=== PATIENT | male | born 1990 | race Caucasian/White ===

== ENCOUNTER 2022-02-07 19:22 | Emergency (ER) | payer OTHER, SELFPAY ==
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
[2022-02-07 19:35] VITALS: BMI 29.0
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
[2022-02-07 19:41] VITALS: BP 144/67; PULSE 69; RESP 18; TEMP 36.1; O2SAT 96
[2022-02-07 19:51] LABS: MANUAL DIFF FLAG NO
[2022-02-07 19:52] LABS: Basophils Percent Auto 0.5 % (0-2); Eosinophils Absolute Auto 0.1 X10*3/uL (0.0-0.4); Eosinophils Percent Auto 1.7 % (0-4); Hematocrit 38.7 % (42.0-52.0); Hemoglobin 12.9 g/dl (14.0-18.0); Imm Gran Abs Auto 0.08 X10*3/uL (0.00-0.03); Imm Gran Pct Auto 0.9 % (0.0-0.4); Lymphocytes Absolute Auto 3.2 X10*3/uL (1.2-4.9); Lymphocytes Percent Auto 37.4 % (20-40); Mean Corpuscular HGB Conc 33.3 g/dl (31.0-36.0); Mean Corpuscular Hemoglobin 27.5 pg (27.0-33.0); Mean Corpuscular Volume 82.5 fL (80.0-98.0); Mean Platelet Volume 10.9 fL (9.4-12.4); Monocytes Absolute Auto 0.9 X10*3/uL (0.1-1.2); Monocytes Percent Auto 10.9 % (2-11); Neutrophils Absolute Auto 4.1 x10*3/uL (2.0-8.3); Neutrophils Percent Auto 48.6 % (45-73); Platelet Count 215 X10*3/uL (160-400); Red Blood Count 4.69 X10*6/uL (4.60-5.80); Red Cell Distribution Width 12.8 % (11.0-16.0); White Blood Count 8.5 X10*3/uL (4.8-10.8)
[2022-02-07 19:58] LABS: INTERNATIONAL NORM RATIO 0.9 (0.9-1.1); Prothrombin Time 9.9 SEC (10.0-13.1)
[2022-02-07 20:09] LABS: Alanine Aminotransferase 20 U/L (0-40); Albumin Level 4.3 g/dL (3.5-5.0); Alkaline Phosphatase 67 U/L (39-117); Anion Gap 14 (12-20); Aspartate Amino Transferase 13 U/L (5-37); Bilirubin Total 0.2 mg/dL (0.0-1.0); Blood Urea Nitrogen 22 mg/dL (9-16); Calcium 9.3 mg/dL (8.4-10.2); Carbon Dioxide 25 mmol/L (22-29); Chloride 103 mmol/L (96-108); Creatinine Clr Calc Pharmacy 137.1; Estimated Glomerular Filt Rate > 60; Glucose Random 132 mg/dL (60-115); Potassium 3.9 mmol/L (3.3-5.1); Sodium 138 mmol/L (135-145)
[2022-02-07 20:15] LABS: Troponin-I High Sensitivity < 3.5 ng/L (<3.5-35.0)
[2022-02-07 20:17] LABS: COVID-19 Test Negative (Negative); IDNOW Serial# 16C4AD1C
[2022-02-07] MEDS: iohexoL 350 MG/ML 100 ML INFUS..BTL IV (20:48)
[2022-02-07] MEDS: Morphine Sulfate Immed Release 15 MG TABLET PO (20:59)
[2022-02-07] MEDS: Lidocaine HCl 1 % MPF 5 ML VIAL 10 ML SUBCUT (20:59)
== END 2022-02-07 22:10 | disposition home or self-care (01) ==
PROVIDERS: Physician Assistant; Emergency Provider Emergency Medicine
DX: S13.4XXA Sprain of ligaments of cervical spine, initial encounter (principal); S06.0XAA Concussion with loss of consciousness status unknown, initial encounter; S01.81XA Laceration without foreign body of other part of head, initial encounter; R07.89 Other chest pain; M54.2 Cervicalgia; R51.9 Headache, unspecified; R10.9 Unspecified abdominal pain; M54.6 Pain in thoracic spine; V43.52XA Car driver injured in collision with other type car in traffic accident, initial encounter; Y93.9 Activity, unspecified; Y92.410 Unspecified street and highway as the place of occurrence of the external cause; Y99.9 Unspecified external cause status; Z20.822 Contact with and (suspected) exposure to COVID-19; Z79.899 Other long term (current) drug therapy
CPT/HCPCS: 12013; 36415; 70450; 71260; 72125; 74177; 80053; 83735; 84484; 85025; 85610; 87635; 93005; 99284; Q9967

== ENCOUNTER 2023-12-07 11:55 | Emergency (ER) | payer MEDICAID, SELFPAY ==
[2023-12-07 12:09] VITALS: BP 119/62; PULSE 63; RESP 16; TEMP 36.1; O2SAT 97
--- NOTE | 2023-12-07 12:17 | ED_ITS ---
HPI - Skin/Abscess/Foreign Bdy General Chief complaint: Skin/Abscess/Foreign Body Stated complaint: Blisters on foot and toe Time Seen by Provider: 12/07/23 12:21 Source: patient Mode of arrival: ambulatory Limitations: no limitations History of Present Illness ED Provider: Paty De La Torre PA-C HPI narrative: Patient is a 33 year old assigned male at with no reported medical history presenting to the emergency department today with redness between his toes. Patient states that over the last few day she has noticed increased redness and itchiness in between his toes on both feet. Patient denies any dizziness, lightheadedness, abdominal pain, nausea, vomiting, fever, chills, blurry vision, double vision, loss of vision, chest pain, difficulty breathing, shortness of breath, back pain, night sweats, pain with urination, increased urinary frequency, increased urinary urgency, blood in his urine or stool, syncope or a near syncopal episode, recent trauma or falls, bowel incontinence, bladder incontinence, or any other complaints at this time. Onset (ago): day(s) Relieving factors: none Exacerbating factors: none Associated symptoms: itching Treatments prior to arrival: none Related Data Previous Rx's ?Medication ?Instructions ?Recorded cyclobenzaprine 10 mg tablet 10 mg PO BEDTIME PRN muscle spasm 02/07/22 #7 tabs lidocaine 5 % topical patch 1 patch topical DAILY PRN pain #15 02/07/22 ea clotrimazole 1 % topical cream 1 appl topical BID 2 weeks #30 12/07/23 grams Allergies Allergy/AdvReac Type Severity Reaction Status Date / Time No Known Allergies Allergy Verified 12/07/23 12:13 Review of Systems Constitutional: Constitutional: Reports no additional constitutional complaints, Denies chills, Denies fever(s) and Denies night sweats Eyes: Eyes: Reports no additional eye complaints, Denies blurry vision, Denies change in vision, Denies diplopia, Denies eye discharge, Denies loss of vision and Denies eye pain ENT: Denies dizziness Cardiovascular: Cardiovascular: Reports no additional cardiovascular complaints, Denies chest pain, Denies lightheadedness, Denies Loss of Consciousness and Denies dyspnea Respiratory: Respiratory: Reports no additional respiratory complaints and Denies dyspnea Gastrointestinal: Gastrointestinal: Reports no additional gastrointestinal complaints, Denies abdominal pain, Denies melena, Denies hematochezia, Denies change in bowel habits and Denies change in stool character Genitourinary: Genitourinary: Reports no additional male genitourinary complaints, Denies hematuria, Denies oliguria, Denies difficulty urinating, Denies dysuria, Denies urinary frequency, Denies urinary hesitancy, Denies urinary incontinence and Denies urinary urgency Musculoskeletal: Musculoskeletal: Reports no additional musculoskeletal complaints, Denies numbness and Denies tingling Comments: redness and itching between all toes Neurologic: Denies dizziness, Denies loss of vision, Denies numbness and Denies tingling Psychiatric: Psychiatric: Reports no additional psychiatric complaints Endocrine: Endocrine: Reports no additional endocrine complaints Hematologic/Lymphatic: Hematologic/Lymphatic: Reports no additional hematologic/lymphatic complaints Allergic/Immunologic: Allergic/Immunologic: Reports no additional allergic/immunologic complaints PMFSH Past Medical History Attestation statement: The following information was validated with the patient. Source: old records reviewed and nursing notes reviewed Social History Social History Advance Directives: No Advance Directives Information Provided: Yes Do you have a plan to hurt others: No Plan Physical Exam Vital Signs: Vital Signs: Last Vital Signs Temp 97.0 F 12/07/23 12:43 Pulse 63 12/07/23 12:43 Resp 16 12/07/23 12:43 BP 119/62 12/07/23 12:43 Pulse Ox 97 12/07/23 12:43 O2 Del Method Room Air 12/07/23 12:43 BMI result Body Mass Index 30.0 Const: General: cooperative, no acute distress, alert and awake Nutritional Appearance: well nourished Orientation/consciousness: patient oriented x3 Limitations: no limitations HEENT: Head: Yes normal to inspection and Yes atraumatic Ears: hearing grossly normal bilaterally and external ears normal General nose exam: Normal external nose present, no nasal discharge noted and no epistaxis Face and sinus: Yes normal facial exam, No abrasion and No laceration Mouth: Normal oral and palatal mucosa present, no drooling and no muffled voice Eyes: General: appearance normal, both eyes and all related structures Periorbital: periorbital findings normal Eyelids: Yes eyelids normal Conjunctivae: conjunctivae normal Pupils: Equal, round and reactive pupils present EOM: EOMs intact bilaterally Neck: Neck: Yes normal visual inspection, Yes full ROM and Yes no lymphadenopathy Chest: Chest palpation & inspection: normal inspection of the chest Resp: Effort & Inspection: normal respiratory effort and able to speak in complete sentences GI: Inspection: Yes normal to inspection Neuro: General: patient oriented x3 and moves all extremities Cranial nerves: Yes Equal, round and reactive pupils present Cognition (Neuro): normal cognition Extrem: Other: erythema present between all toes on both feet - consistent with tinea General: Yes full ROM and Yes capillary refill normal Psych: Appearance: grossly normal Mental Status: mental status grossly normal Affect: normal affect Attitude: cooperative Thought process: Normal thought process present Thought content: Normal thought content present Insight: Good insight present (Psych) Course Course Course Narrative: This is a Rapid Medical Examination (RME) performed by Shahla Cole PA-C in triage. Full HPI, ROS, assessment and treatment plan per primary provider in the Main ED. 33 yo male here for eval of blistering rash to feet x days. believes he was bit by a spider. endorses blister to toes and pain between webbed spaced. rash began on his right foot, now spreading to left. no one else at home w/ similar symptoms. no new medictions/ abx. no new soaps/detergents/lotions. Plan: furhter eval in main ED Medical Decision Making Medical Decision Making MDM Narrative: Patient is a 33 year old assigned male at with no reported medical history presenting to the emergency department today with redness and itching present between all of his toes. Patient's physical exam was consistent with bilateral tinea pedis. I explained my physical exam findings to the patient. I answered all questions asked by the patient. I stressed the importance of the patient taking his medication as directed (either prescribed or as the over the counter packaging recommends). I stressed the importance of the patient following up with his primary care provider. I stressed the importance of the patient returning to the emergency department immediately if his symptoms were to worsen or if he were to develop any dizziness, shortness of breath, difficulty breat esdras, chest pain, blurry vision, loss of vision, nausea, vomiting, abdominal pain, fever, chills, back pain, or any other complaints. Patient verbalized agreement and understanding with this treatment plan and discharge. Differential Diagnosis Differential Diagnoses: The differential diagnosis associated with the presentation includes Tinea pedis Athlete's foot Eczema Admission/Observation Consideration of admission/observation: Escalation of care including admi ssion/observation considered Patient would have been admitted to the hospital had his clinical presentation warranted hospital admission. Prescription Management I considered prescription management with: Other (patient prescribed an antifungal) Discharge Plan Discharge Clinical Impression: Tinea pedis Patient Disposition: Home, Self-Care Instructions: Athlete's Foot (ED), Skin Yeast Infection (ED) Additional Instructions: Make sure to clean your sheets and surfaces that your feet have touched very thoroughly. Follow up with your primary care provider. Return to the emergency department immediately if your symptoms worsen or if you develop any dizziness, shortness of breath, difficulty breathing, chest pain, blurry vision, loss of vision, nausea, vomiting, abdominal pain, fever, chills, back pain, or any other complaints. Prescriptions: New clotrimazole 1 % cream 1 appl topical BID 14 Days Qty: 30 0RF No Action cyclobenzaprine 10 mg tablet 10 mg PO BEDTIME PRN (Reason: muscle spasm) Qty: 7 0RF lidocaine 5 % adhesive patch,medicated 1 patch topical DAILY PRN (Reason: pain) Qty: 15 0RF Rx Instructions: leave on most painful area for up to 12 hrs Referrals: [facility] Family Medicine [Provider Group] (Call to establish and follow up with a primary care provider. If you already have a primary care provider, please follow up with them.) [facility] [Provider Group] (Call to establish and follow up with a primary care provider. If you already have a primary care provider, please follow up with them.) [facility] Primary Care,[facility] [Provider Group] (Call to establish and follow up with a primary care provider. If you already have a primary care provider, please follow up with them.) Stand Alone Forms: Work/School Release Interventions: ED Discharge Assessment Last Done: 12/07/23 12:43 Discharge Date/Time: 12/07/23 12:48 Print Language: Tamazight
[2023-12-07 12:43] VITALS: BP 119/62; PULSE 63; RESP 16; TEMP 36.1; O2SAT 97
== END 2023-12-07 12:48 | disposition home or self-care (01) ==
PROVIDERS: Emergency Provider Emergency Medicine
DX: B35.3 Tinea pedis (principal)
CPT/HCPCS: 99282; 99283

== ENCOUNTER 2024-05-20 09:56 | Emergency (ER) | payer MEDICAID, SELFPAY ==
--- NOTE | ~2024-05-20 | CT_ITS ---
EXAMINATION: CT CERVICAL SPINE WITHOUT CONTRAST CLINICAL INFORMATION: Status post fall. COMPARISON: None available. TECHNIQUE: This CT examination was performed using dose optimization techniques as appropriate, variously including the following: *Automated exposure control *Adjustment of mA and/or kV according to patient size (this includes techniques or standardized protocols for targeted exams where dose is matched to indication/reason for exam; i.e. extremities or head) *Use of iterative reconstruction technique DLP: 399.45 mGy centimeter. FINDINGS: Craniocervical junction is intact. C1 is intact. C2 is intact. C3 is intact. C4 is intact. C5 is intact. C6 is intact. C7 is intact. Anterior marginal osteophyte formation at C5-6 with decreased intervertebral disc height. There is normal alignment between the vertebral bodies and the facet joints. There is a reverse curvature apex at C4-5. No gross prevertebral compartment hematoma. S-shaped curvature of the cervical thoracic spine which could be positional. The temporomandibular joints are intact. The tympanic cavities and mastoid cells are aerated. The thyroid gland is not enlarged. 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 Fleischner guidelines were followed. Electronically signed by: Raymond Rodriguez MD 05/20/2024 12:17 PM [facility]
--- NOTE | ~2024-05-20 | CT_ITS ---
EXAMINATION: CT HEAD WITHOUT CONTRAST CLINICAL INFORMATION: fall head strike COMPARISON: February 07, 2022 TECHNIQUE: Contiguous axial imaging was performed from the skull base to vertex without intravenous administration of contrast. This CT examination was performed using dose optimization techniques as appropriate, variously including the following: *Automated exposure control *Adjustment of mA and/or kV according to patient size (this includes techniques or standardized protocols for targeted exams where dose is matched to indication/reason for exam; i.e. extremities or head) *Use of iterative reconstruction technique DLP: 608.31 mGy-cm FINDINGS: Soft tissue contusion, right forehead. No acute intracranial hemorrhage, mass effect, midline shift, hydrocephalus or herniation. Urbano-white matter differentiation is normal. Posterior cranial fossa contents demonstrated no acute intracranial hemorrhage or mass effect. 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 Sellar/suprasellar region demonstrated no gross masses or hemorrhage. The bony calvarium is intact. Skull base is intact. No air-fluid levels in the included paranasal sinuses. Tympanic cavities and mastoid cells are aerated. CT/CT head/brain wo IV con IMPRESSION: Soft tissue contusion, right forehead. No acute fracture or bony calvarium. No acute intracranial hemorrhage. Electronically signed by: Ryamond Rodriguez MD 05/20/2024 12:03 PM [facility]
--- NOTE | ~2024-05-20 | CT_ITS ---
EXAMINATION: CT FACIAL BONES WITHOUT CONTRAST CLINICAL INFORMATION: Status post fall. Head injury. Facial injury. COMPARISON: None available. TECHNIQUE: Contiguous axial images through the maxillofacial bones using 3 mm collimation with bone and soft tissue algorithm. Sagittal and coronal reformatted images acquired. This CT examination was performed using dose optimization techniques as appropriate, variously including the following: *Automated exposure control *Adjustment of mA and/or kV according to patient size (this includes techniques or standardized protocols for targeted exams where dose is matched to indication/reason for exam; i.e. extremities or head) *Use of iterative reconstruction technique DLP: 243.65 mGy centimeter. FINDINGS: Nasal bones, nasal septum and vomer are intact. There is a 3 mm depressed abnormality involving the right orbital floor just medial from the infraorbital foramen without entrapment of the extraocular muscle. There is small amount of herniated extraconal fat. No intraconal or extraconal compartment hematoma at either orbit. The eyeballs are intact. The left orbit is intact. The orbital fissures and orbital apices are intact. The zygomatic arch are intact. The maxilla and pterygoid plates are intact. The mandible is intact. The temporomandibular joints are intact. Mucosal thickening without air-fluid levels in the paranasal sinuses. Tympanic cavities and mastoid cells are aerated. Soft tissue contusion right forehead. CT/CT facial bones wo IV con IMPRESSION: No acute fracture, maxillofacial bones. Probable old traumatic deformity right orbital floor without extraocular muscle entrapment. Electronically signed by: Raymond Rodriguez MD 05/20/2024 12:08 PM [facility]
[2024-05-20 11:14] VITALS: BP 127/61; PULSE 63; RESP 16; TEMP 36.8; O2SAT 98; BMI 29.4
--- NOTE | 2024-05-20 11:14 | ED_ITS ---
HPI - General Adult General Chief complaint: Fall Stated complaint: Fell, hit head - dizziness, nausea Time Seen by Provider: 05/20/24 14:35 Source: patient Mode of arrival: ambulatory Limitations: no limitations History of Present Illness ED Provider: JERALD COLE PA-C HPI narrative: 33 year old male presents to the ED today for evaluation of left sided facial pain and right sided neck pain s/p slip and fall on ice yesterday. Reports falling onto his left side, striking the left side of his face. No LOC. Not on AC. He was able to continue on with his day without any complaints/ concerns. Reports waking this morning feeling dizzy with nausea. States he feels out of it . Admits to facial pain and neck pain. Denies headache, vision changes, back pain, vomiting. Related Data Previous Rx's ?Medication ?Instructions ?Recorded cyclobenzaprine 10 mg tablet 10 mg PO BEDTIME PRN muscle spasm 02/07/22 #7 tabs lidocaine 5 % topical patch 1 patch topical DAILY PRN pain #15 02/07/22 ea clotrimazole 1 % topical cream 1 appl topical BID 2 weeks #30 12/07/23 grams acetaminophen 325 mg tablet 650 mg (2 x 325 mg) PO Q4-6H PRN 05/20/24 (Tylenol) pain (scale score 1-3) #20 tabs ibuprofen 600 mg tablet 600 mg PO Q8H PRN pain (scale 05/20/24 score 1-3) #20 tabs ondansetron 4 mg disintegrating 4 mg PO DAILY PRN nausea and 05/20/24 tablet vomiting 5 days #7 tabs Allergies Allergy/AdvReac Type Severity Reaction Status Date / Time No Known Allergies Allergy Verified 05/20/24 11:16 Review of Systems Review of Systems: Yes all other systems are reviewed and are negative PMFSH Past Medical History Attestation statement: The following information was validated with the patient. Source: old records reviewed and nursing notes reviewed Social History Social History Advance Directives: No Advance Directives Information Provided: No Physical Exam ED Vital Signs: Vital Signs - 24 hr 05/20/24 11:14 Temperature 98.3 F Pulse Rate 63 Respiratory Rate 16 Blood Pressure 127/61 Pulse Oximetry 98 Oxygen Delivery Method Room Air BMI result Body Mass Index 29.4 vital signs stable General: Well appearing, in no acute distress. Skin: Warm, dry, intact. No rashes or lesions. Head: Normocephalic, atraumatic. no palpable fx or hematoma. no battles sign or raccoon eyes. EENT: Hearing is intact b/l. Conjunctiva clear. PERRLA. EOM intact w/o entrapment. Moist mucous membranes.?no septal hematoma. Neck: no midline spinous tenderness or step off, there is ttp of right cervical paraspinal muscles with slight spasm Cardiac: Chest wall symmetric. RRR Lungs: Normal respiratory effort without accessory muscle use. CTA bilaterally. Abdomen: Soft, non-tender, non-distended Back: No midline spinous or paraspinal tenderness. No step off deformity. Ext: Upper and lower extremities atraumatic, without tenderness, deformity, swelling or erythema. Full ROM throughout Neuro: NIH 0. AOx3. Normal speech. normal finger to nose, heel to bishop. Amb ulating with steady gait. Psych: Appropriate mood and affect. Responds appropriately to questions. Course Course Course Narrative: This is a Rapid Medical Examination (RME) performed by Shahla Cole PA-C in triage. Full HPI, ROS, assessment and treatment plan per primary provider in the Main ED. 33 yo male here w/ left sided headache and right sided neck pain s/p slip and fall on ice yesterday. fell and struck left sabianist. no LOC. not on AC. assoc dizziness and nausea w/o vomiting. denies any other injury. no OTC analgesics. Plan: imaging Reevaluation(s) Reevaluation #1: 8410 -- ct head showing soft tissue contusion to right forehead, no skull fracture or intracranial bleed. ct cervical spine without fracture or subluxation. CT facial bones showin mm depressed abnormality involving the right orbital floor just medial from the infraorbital foramen without entrapment of the extraocular muscle. There is small amount of herniated extraconal fat. No intraconal or extraconal compartment hematoma at either orbit. I discussed results w/ patient. I do not have concern for any muscle entrapment. no noted trauma around the orbit on exam. he tells me he fractured his orbit years ago in another accident and has had the appropriate follow up for this. denies any right eye pain/ vision changes. I do not have concern that this finding is acute as a result of yesterday's fall. work up and exam are unremarkable. likely concussion. education on concussion protocol. Patient has remained stable throughout ED visit today. Discussed worrisome signs and symptoms and when to return to the ED. All questions answered at this time. Patient is agreeable with disposition and stable for discharge. Medical Decision Making Medical Decision Making MDM Narrative: 33 year old male presents to the ED today for evaluation of left sided facial pain and right sided neck pain s/p slip and fall on ice yesterday. His vitals are stable and he is well appearing. His exam is nonfocal and cerebellum is intact. head is normocephalic, atraumatic w/o signs of basilar skull fracture. EOMs are intact w/o entrapment. PERRLA. no septal hematoma. ambulating with steady gait. Differential diagnosis includes contusion, hematoma, concussion, facial fracture, ICH Plan for imaging and re-evaluation. Differential Diagnosis Differential Diagnoses: The differential diagnosis associated with the presentation includes as above. Admission/Observation not indicated. Independent Interpretation I performed an independent interpretation of an: CT Scan Interpretation: CT head/ brain w/o intracranial bleed or skull fx CT facial bones w/ old orbital skull fx Ct cervical spine without acute subluxation Radiology Impression Discussion of test interpretation with radiology: I have reviewed the radiologist's reading. Radiologist Impression: EXAMINATION: CT FACIAL BONES WITHOUT CONTRAST CLINICAL INFORMATION: Status post fall. Head injury. Facial injury. COMPARISON: None available. TECHNIQUE: Contiguous axial images through the maxillofacial bones using 3 mm collimation with bone and soft tissue algorithm. Sagittal and coronal reformatted images acquired. This CT examination was performed using dose optimization techniques as appropriate, variously including the following: *Automated exposure control *Adjustment of mA and/or kV according to patient size (this includes techniques or standardized protocols for targeted exams where dose is matched to indication/reason for exam; i.e. extremities or head) *Use of iterative reconstruction technique DLP: 243.65 mGy centimeter. FINDINGS: Nasal bones, nasal septum and vomer are intact. There is a 3 mm depressed abnormality involving the right orbital floor just medial from the infraorbital foramen without entrapment of the extraocular muscle. There is small amount of herniated extraconal fat. No intraconal or extraconal compartment hematoma at either orbit. The eyeballs are intact. The left orbit is intact. The orbital fissures and orbital apices are intact. The zygomatic arch are intact. The maxilla and pterygoid plates are intact. The mandible is intact. The temporomandibular joints are intact. Mucosal thickening without air-fluid levels in the paranasal sinuses. Tympanic cavities and mastoid cells are aerated. Soft tissue contusion right forehead. CT/CT facial bones wo IV con IMPRESSION: No acute fracture, maxillofacial bones. Probable old traumatic deformity right orbital floor without extraocular muscle entrapment. Electronically signed by: Raymond Rodriguez MD 05/20/2024 12:08 PM EST RP EXAMINATION: CT HEAD WITHOUT CONTRAST CLINICAL INFORMATION: fall head strike COMPARISON: February 07, 2022 TECHNIQUE: Contiguous axial imaging was performed from the skull base to vertex without intravenous administration of contrast. This CT examination was performed using dose optimization techniques as appropriate, variously including the following: *Automated exposure control *Adjustment of mA and/or kV according to patient size (this includes techniques or standardized protocols for targeted exams where dose is matched to indication/reason for exam; i.e. extremities or head) *Use of iterative reconstruction technique DLP: 608.31 mGy-cm FINDINGS: Soft tissue contusion, right forehead. No acute intracranial hemorrhage, mass effect, midline shift, hydrocephalus or herniation. Urbano-white matter differentiation is normal. Posterior cranial fossa contents demonstrated no acute intracranial hemorrhage or mass effect. 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 Sellar/suprasellar region demonstrated no gross masses or hemorrhage. The bony calvarium is intact. Skull base is intact. No air-fluid levels in the included paranasal sinuses. Tympanic cavities and mastoid cells are aerated. CT/CT head/brain wo IV con IMPRESSION: Soft tissue contusion, right forehead. No acute fracture or bony calvarium. No acute intracranial hemorrhage. Electronically signed by: Raymond Rodriguez MD 05/20/2024 12:03 PM EST RP EXAMINATION: CT CERVICAL SPINE WITHOUT CONTRAST CLINICAL INFORMATION: Status post fall. COMPARISON: None available. TECHNIQUE: This CT examination was performed using dose optimization techniques as appropriate, variously including the following: *Automated exposure control *Adjustment of mA and/or kV according to patient size (this includes techniques or standardized protocols for targeted exams where dose is matched to indication/reason for exam; i.e. extremities or head) *Use of iterative reconstruction technique DLP: 399.45 mGy centimeter. FINDINGS: Craniocervical junction is intact. C1 is intact. C2 is intact. C3 is intact. C4 is intact. C5 is intact. C6 is intact. C7 is intact. Anterior marginal osteophyte formation at C5-6 with decreased intervertebral disc height. There is normal alignment between the vertebral bodies and the facet joints. There is a reverse curvature apex at C4-5. No gross prevertebral compartment hematoma. S-shaped curvature of the cervical thoracic spine which could be positional. The temporomandibular joints are intact. The tympanic cavities and mastoid cells are aerated. The thyroid gland is not enlarged. 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 Fleischner guidelines were followed. Electronically signed by: Raymond Rodriguez MD 05/20/2024 12:17 PM [facility] [place], [place] External Record Review External record reviewed: Inpatient record Prescription Management I considered prescription management with: Pain Medication Social Determinants Patient?s care significantly limited by Social Determinants of Health including: Other Social Determinant of Health Critical Care Time Critical Care Time Critical Care Time: No Discharge Plan Discharge Clinical Impression: Concussion without loss of consciousness Patient Disposition: Home, Self-Care Instructions: Concussion (ED) Additional Instructions: You were evaluated in the ED today following a head injury. The CT scan of your head/neck and facial bones does not demonstrate intracranial bleed or acute fracture. You have a concussion. Treatment for this is brain rest. Please limit screen time (i.e phone, tv, etc.) Make sure you are staying hydrated. Lay down to relax in a dark quiet room. Zofran has been sent to your pharmacy for you to take as needed for nausea. You may also take motrin or tylenol at home as needed for headache. Follow up with PCP as needed. As discussed, return to the ED with any new or worsening symptoms. In the case of an emergency call 911. Prescriptions: New ibuprofen 600 mg tablet 600 mg PO Q8H PRN (Reason: pain (scale score 1-3)) Qty: 20 0RF acetaminophen [Tylenol] 325 mg tablet 650 mg PO Q4-6H PRN (Reason: pain (scale score 1-3)) Qty: 20 0RF ondansetron 4 mg tablet,disintegrating 4 mg PO DAILY PRN (Reason: nausea and vomiting) 5 Days Qty: 7 0RF No Action cyclobenzaprine 10 mg tablet 10 mg PO BEDTIME PRN (Reason: muscle spasm) Qty: 7 0RF lidocaine 5 % adhesive patch,medicated 1 patch topical DAILY PRN (Reason: pain) Qty: 15 0RF Rx Instructions: leave on most painful area for up to 12 hrs clotrimazole 1 % cream 1 appl topical BID 14 Days Qty: 30 0RF Stand Alone Forms: Work/School Release Discharge Date/Time: 05/20/24 14:50 Print Language: Kinyarwanda
== END 2024-05-20 14:50 | disposition home or self-care (01) ==
LOC: HO.ED 14:43
PROVIDERS: Emergency Provider Emergency Medicine
DX: S06.0X0A Concussion without loss of consciousness, initial encounter (principal); S00.83XA Contusion of other part of head, initial encounter; W00.0XXA Fall on same level due to ice and snow, initial encounter; R51.9 Headache, unspecified; R42 Dizziness and giddiness; M54.2 Cervicalgia; R11.0 Nausea; Y93.9 Activity, unspecified; Y92.410 Unspecified street and highway as the place of occurrence of the external cause; Y99.9 Unspecified external cause status
CPT/HCPCS: 70450; 70486; 72125; 99281; 99284

== ENCOUNTER → 2024-05-20 11:15 | Outpatient (BNV) | payer MEDICAID, SELFPAY | PROVIDERS: Visit Provider Radiology Diagnostic Radiology | DX: G50.1 Atypical facial pain (principal); M54.2 Cervicalgia; S06.0XAA Concussion with loss of consciousness status unknown, initial encounter | CPT/HCPCS: 70450; 70486; 72125 ==

== ENCOUNTER 2024-12-15 21:16 | Emergency (ER) | payer OTHER, SELFPAY ==
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
[2024-12-15 21:19] VITALS: BP 141/83; PULSE 70; RESP 18; TEMP 36.3; O2SAT 100; BMI 31.1
[2024-12-15 22:27] VITALS: BP 112/50; PULSE 55; RESP 18; TEMP 36.8; O2SAT 97
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
[2024-12-16 01:07] VITALS: BP 116/79; PULSE 63; RESP 18; TEMP 36.8; O2SAT 100
[2024-12-16 01:25] VITALS: BP 116/79; PULSE 63; RESP 18; TEMP 36.8; O2SAT 100
== END 2024-12-16 01:10 | disposition home or self-care (01) ==
PROVIDERS: Emergency Provider Emergency Medicine
DX: S09.90XA Unspecified injury of head, initial encounter (principal); S13.4XXA Sprain of ligaments of cervical spine, initial encounter; V43.52XA Car driver injured in collision with other type car in traffic accident, initial encounter; W22.11XA Striking against or struck by driver side automobile airbag, initial encounter; Y93.9 Activity, unspecified; Y92.9 Unspecified place or not applicable; Y99.9 Unspecified external cause status; M54.6 Pain in thoracic spine
CPT/HCPCS: 72100; 96372; 99284; J1885

== ENCOUNTER → 2024-12-15 21:35 | Outpatient (BNV) | payer MEDICAID, SELFPAY | PROVIDERS: Visit Provider Student in an Organized Health Care Education/Training Program | DX: M54.50 Low back pain, unspecified (principal) | CPT/HCPCS: 72100 ==